=== PATIENT | female | born 1990 | race Hispanic/Latino ===

== ENCOUNTER 2018-03-05 22:28 | Emergency (ER) | payer BC ==
[2018-03-05 22:42] VITALS: BP 116/79; PULSE 72; RESP 17; TEMP 97.8; O2SAT 98
--- NOTE | 2018-03-05 23:23 | ED PDOC ---
HPI: Wound Care - HPI Time Seen by Provider: 03/05/18 22:47 Chief Complaint (Nursing): Abnormal Skin Integrity Chief Complaint (Provider): laceration History Per: Patient History Of Present Illness: 22 y/o female presents with laceration to left hand sustained prior to arrival. Patient states she was using a knife to pry something open and it slipped, cutting her left hand in between 1st and 2nd digit. Denies numbness/weakness left upper extremity, limitation of movement. Tetanus up to date. Past Medical History Reviewed: Historical Data, Nursing Documentation, Vital Signs Vital Signs: Last Vital Signs Temp 97.8 F 03/05/18 22:38 Pulse 72 03/05/18 22:38 Resp 17 03/05/18 22:38 BP 116/79 03/05/18 22:38 Pulse Ox 98 03/05/18 22:38 - Medical History PMH: No Chronic Diseases - Surgical History Surgical History: No Surg Hx - Family History Family History: States: No Known Family Hx - Home Medications Home Medications: Ambulatory Orders Medication Instructions Recorded No Known Home Med 03/05/18 - Allergies Allergies/Adverse Reactions: Allergies Allergy/AdvReac Type Severity Reaction Status Date / Time amoxicillin Allergy Mild hives Verified 03/05/18 22:42 Review of Systems ROS Statement: Except As Marked, All Systems Reviewed And Found Negative Musculoskeletal: Positive for: Hand Pain (left hand laceration) Physical Exam - Reviewed Nursing Documentation Reviewed: Yes Vital Signs Reviewed: Yes - Physical Exam Appears: Positive for: Well, Non-toxic, No Acute Distress Pulses-Radial (L): 2+ Pulses-Radial (R): 2+ Extremity: Positive for: Normal ROM, Other (0.5cm skin flap laceration in webspace between 1st and 2nd digit of left hand extending in to superficial skin tear towards 2nd digit. No active bleeding. FROM. Distal NV, motor intact ) Neurologic/Psych: Positive for: Alert, Oriented. Negative for: Motor/Sensory Deficits - ECG O2 Sat by Pulse Oximetry: 98 Procedure: Wound Repair - Time Performed Time Performed: 23:15 - Time Out Time Out: Side verified, Site verified, Patient ID confirmed - Consent Obtained Consent obtained: Verbal - Performed by Performed by: Mid-level Provider - Indications Indication(s):: Laceration - Location Location:: Left, Hand Shape:: Linear Dimensions Length cm: 0.5 Dimensions width cm: 0.3 Depth:: Epidermis - Debris Debris:: None - Irrigated Irrigated with ml of normal saline: 100mL - Wound repair method Angelica:: Tissue glue, Steri-strips - Muscle repiar layer closed with Muscle repair layer closed with:: Dressing applied, Tetanus up to date - Patient tolerated procedure Patient Tolerated Procedure:: Well Medical Decision Making Medical Decision Making: Patient educated on wound care, advised follow up with PMD in 2-3 days. Return precautions given Disposition - Clinical Impression Clinical Impression: Laceration of left hand - Patient ED Disposition Is Patient to be Admitted: No Counseled Patient/Family Regarding: Diagnosis, Need For Followup - Disposition Disposition: Routine/Home Disposition Time: 23:28 Condition: STABLE Instructions: Laceration Repair With Glue (DC) Forms: [employer] (Polish)
== END 2018-03-05 23:48 | disposition home or self-care (01) ==
LOC: H.ER 22:28
DX: S61.412A Laceration without foreign body of left hand, initial encounter (principal); W26.0XXA Contact with knife, initial encounter; Y92.89 Other specified places as the place of occurrence of the external cause